=== PATIENT | male | born 1955 | race Caucasian/White ===

== ENCOUNTER 2020-01-13 17:10 | Emergency (ER) | payer OTHER, SELFPAY ==
[2020-01-13 17:16] VITALS: BP 168/79; PULSE 81; RESP 16; TEMP 36.9; O2SAT 99; BMI 31.3
--- NOTE | 2020-01-13 17:23 | DI.RAD.S_ITS ---
PROCEDURE: XR WRIST RT MIN 3V INDICATIONS: right wrist pain TECHNIQUE: 3 views of the wrist were acquired. COMPARISON: None. FINDINGS: Bones: No fractures or dislocations. No suspicious bony lesions. Soft tissues: No suspicious soft tissue calcifications. IMPRESSION: No acute radiographic findings. If pain persists, followup imaging in 5-7 days is recommended to exclude occult fracture. Dictated by: Tika Juan M.D. on 01/13/2020 at 17:35 Approved by: Tika Juan M.D. on 01/13/2020 at 17:37
--- NOTE | 2020-01-13 18:30 | ED.UPPEXIN ---
HPI - Extremity Injury (Upper) <GRIFFIN King - Last Filed: 01/13/20 18:42> General Chief Complaint: Extremity Injury, Upper Stated Complaint: Rt Wrist Pain Time Seen by Provider: 01/13/20 17:26 Source: patient Mode of arrival: Ambulatory Limitations: no limitations History of Present Illness HPI narrative: This is a 64-year-old male, nonsmoker, who has history of asthma, diabetes, hypertension presents to ED with nontraumatic right radial aspect of wrist pain for last 2 days. Patient reports pain is very brief and intermittent. Pain comes with certain movements and stretching. 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 Patient denies straining or spraining affected wrist. Patient denies tingling/numbness/weakness to affected hand. He reports intact sensation distally. He is able to move all fingers without difficulty on right hand. Patient denies warmth, redness to affected site but reports noticed small swelling in the affected wrist yesterday. Related Data Allergies Allergy/AdvReac Type Severity Reaction Status Date / Time No Known Drug Allergies Allergy Verified 01/13/20 17:20 Review of Systems <GRIFFIN King - Last Filed: 01/13/20 18:42> Review of Systems Narrative: General: Denies fever, chills, fatigue, malaise, sweats. Respiratory: Denies dyspnea, cough, wheezing, hemoptysis, sputum. Cardiovascular: Denies chest pain, palpitations, orthopnea, edema. Gastrointestinal: Denies nausea, vomiting, abdominal pain, diarrhea, constipation, melena. : Denies dysuria, frequency, incontinence, hematuria, urinary retention. Musculoskeletal: See HPI Skin: Denies rash, skin lesions, or other. Neurologic: Denies weakness, headache, numbness, change in speech, confusion, seizures, incoordination. Patient History <GRIFFIN King - Last Filed: 01/13/20 18:42> Medical History BPH (benign prostatic hyperplasia) (Acute) Diabetes (Acute) Hypertension (Acute) Lipidemia (Acute) Social History Smoking Status: Never smoker Smoking Status: Never smoker alcohol intake frequency: 0-2 drinks per day Substance Use Type: does not use Exam <GRIFFIN King - Last Filed: 01/13/20 18:42> Narrative Exam Narrative: General appearance: well developed, well nourished, in no acute distress. Head: normocephalic, atraumatic, no scalp lesions, non-tender. ENT: Hearing grossly intact. Airway patent. Neck/Thyroid: neck supple, full range of motion, no visible masses or meningeal signs. No JVD, non-tender without lymphadenopathy. Skin: no suspicious rashes, lesions over visible areas. Warm and dry and appropriate color for ethnicity. Heart: no clubbing, no cyanosis, no edema. Lungs: Breathing even and unlabored. No stridor. No accessory muscles used. Able to speak in full sentences. Chest: normal shape and expansion. Abdomen: non-obese, non-distended. Neurologic: alert and oriented. Cognitive exam, [employer] and PNS grossly intact on informal exam. Psych: good eye contact, normal affect. Initial Vital Signs Initial Vital Signs: Vital Signs Temperature 98.5 F 01/13/20 17:16 Pulse Rate 81 01/13/20 17:16 Respiratory Rate 16 01/13/20 17:16 Blood Pressure 168/79 H 01/13/20 17:16 Pulse Oximetry 99 01/13/20 17:16 Extrem Right upper extremity: wrist Details: normal to inspection, normal ROM, normal vascular exam, radial pulse present and Phalen's negative; no swelling, no unusual warmth, no lacerations, no ecchymosis, no deformity and Tinel's positive and hand Details: normal to inspection, normal capillary refill, neuromotor exam normal, neurosensory exam normal, vascular exam Details: radial pulse present and normal capillary refill and normal ROM of fingers; no tenderness <Davy Kohler MD - Last Filed: 01/13/20 22:32> Initial Vital Signs Initial Vital Signs: Vital Signs Temperature 98.5 F 01/13/20 17:16 Pulse Rate 81 01/13/20 17:16 Respiratory Rate 16 01/13/20 17:16 Blood Pressure 168/79 H 01/13/20 17:16 Pulse Oximetry 99 01/13/20 17:16 Scores <Donny GRIFFIN Roa - Last Filed: 01/13/20 18:42> GCS Kamari coma scale eye opening: Spontaneous [place] coma scale verbal response: Orientated [place] coma scale motor response: Obey commands [place] coma scale total score: 15 Course <Donny PatelGRIFFIN calabrese - Last Filed: 01/13/20 18:42> Orders Ordered: ED Orders 01/13/20 17:23 XR wrist RT min 3V Stat Vital Signs Vital signs: Vital Signs - 8 hr 01/13/20 17:16 01/13/20 18:43 Temperature 98.5 F Pulse Rate 81 75 Respiratory Rate 16 16 Blood Pressure 168/79 H 150/79 H Pulse Oximetry 99 97 <Davy Kohler MD - Last Filed: 01/13/20 22:32> Orders Ordered: ED Orders 01/13/20 17:23 XR wrist RT min 3V Stat Vital Signs Vital signs: Vital Signs - 8 hr 01/13/20 17:16 01/13/20 18:43 Temperature 98.5 F Pulse Rate 81 75 Respiratory Rate 16 16 Blood Pressure 168/79 H 150/79 H Pulse Oximetry 99 97 MDM - Extremity Injury (Upper) <Donny ManzanoangNickGRIFFIN calabrese - Last Filed: 01/13/20 18:42> Differential Diagnosis Differential diagnosis: Likely sprain and strain of wrist, fracture of wrist and other (Carpal tunnel syndrome) Medical Records Attestation: I reviewed the patient's medical records. Imaging Data XR-Wrist RT: Radiologist's Impression: [place] [address] XRay Report Signed Patient: Jeb Bradley EMR#: [id number] : 7Acct:[id number] Age/Sex: 64 / MDate of Service: 01/13/20 Loc: ED Accession Number: [id number] Procedure: XR wrist RT min 3V Ordering Provider: Dee Dee Roman D.O. PROCEDURE: XR WRIST RT MIN 3V INDICATIONS: right wrist pain TECHNIQUE: 3 views of the wrist were acquired. COMPARISON: None. FINDINGS: Bones: No fractures or dislocations. No suspicious bony lesions. Soft tissues: No suspicious soft tissue calcifications. IMPRESSION: No acute radiographic findings. If pain persists, followup imaging in 5-7 days is recommended to exclude occult fracture. Dictated by: Tika Juan M.D. on 01/13/2020 at 17:35 Approved by: Tika Juan M.D. on 01/13/2020 at 17:37 [facility] Narrative Medical decision making narrative: This is a 64-year-old male who presents to ED with dominant hand right wrist nontraumatic pain for last 2 days. Patient has intact sensation and mobility distally. Intact radial pulse and cap refill. Physical exam was unremarkable except positive Tinel sign. X-ray test does not show acute findings such as fractures or dislocations. Patient reports pain is random and does not last long. Patient declined wrist guard or Ruslan wrap. He advised to take [id number] Tylenol and or Motrin as needed. If pain persists and follow-up with primary care physician for further evaluation and possible referral to orthopedist. Patient verbalized understanding and agreement with treatment. Discharge Plan Departure Patient Disposition: Home Clinical Impression: Pain in wrist Qualifiers: Laterality: right Qualified Code(s): M25.531 - Pain in right wrist Discharge Date/Time: 01/13/20 18:44 Instructions: DI for Wrist Pain Activity Restrictions/Additional Instructions: You have been diagnosed with [right wrist nontraumatic pain may due to sprain, strain, or carpal tunnel. X-ray test does not show acute findings.]. What to do: *Take your medications as directed. Please take [id number] Tylenol and or Motrin as needed for discomfort. *Follow up with your primary care provider in 2-3 days, call for an appointment. Let them know you were seen in the ED and that we asked you to be seen in follow up. *Return to ED if you have any new, worsening, or concerning symptoms, such as [chest pain, breathing difficulty, unable to tolerate fluids, worsening pain, tingling/numbness/weakness to affected hand or any acute concerns]. Referrals: Clarissa Sparrow [Primary Care Provider] - <Davy Kohler MD - Last Filed: 01/13/20 22:32> Cosign ED Attending Laviniaature Attestation: I was immediately available in the department for consultation. This documentation has been reviewed and I agree with assessment and plan. Supervised by Davy Kohler MD
--- NOTE | 2020-01-13 18:40 | PC.NURSE ---
reports he has been having pain for month in his right wrist. pain has gotten worse today. denies any numbness or tingling
[2020-01-13 18:43] VITALS: BP 150/79; PULSE 75; RESP 16; O2SAT 97
== END 2020-01-13 18:44 | disposition home or self-care (01) ==
PROVIDERS: Emergency Provider Nurse Practitioner Family; PCP Nurse Practitioner Acute Care; Referring Provider Nurse Practitioner Acute Care
DX: M25.531 Pain in right wrist (principal)
CPT/HCPCS: 73110; 99281; 99283